=== PATIENT | female | born 1960 | race Caucasian/White ===

== ENCOUNTER 2016-11-29 12:44 | Emergency (ER) | payer MEDICAID ==
--- NOTE | 2016-11-29 14:02 | ED Physician Chart ---
Chief Complaint/HPI - Patient Information Date Seen:: 11/29/16 Time Seen:: 13:50 Chief Complaint:: NEW ONSET HYPERTENSION History of Present Illness:: 56-year-old female was referred to the emergency department from [facility]. She had gone to have evaluation for a UTI and her blood pressure was over 200 systolic.She reports noting that her urine was a pink color for the first time. She denies any dysuria, urinary frequency, fever, chills or back pain. She was started on Bactrim and then referred to the emergency department for further evaluation of hypertension. She has a mild headache which she had not really noticed until directly asked about it. She has no chest pain or respiratory distress. To the best of her knowledge or kidney function remains normal. Allergies:: Allergies Allergy/AdvReac Type Severity Reaction Status Date / Time No Known Allergies Allergy Verified 11/29/16 13:15 Vitals:: Vital Signs - 8 hr 11/29/16 13:16 Temp 98.3 F HR 73 RR 16 BP 197/113 O2 Sat % 99 Review of Systems - Review of Systems General/Constitutional: No fever, No chills, No weight loss, No edema, No loss of appetite Skin: No skin lesions, No rash, No bruising Head: Headache ( The headache is mild and localized to both temporal regions. She notices that headache sometimes comes on when she bends forward.), No light- headedness Eyes: No loss of vision, No pain, No diplopia ENT: No earache, No sore throat, No tinnitus Neck: No neck pain, No stiffness, No mass noted Cardio Vascular: No chest pain, No PND, No edema Pulmonary: No SOB, No cough, No sputum, No wheezing GI: No nausea, No vomiting, No diarrhea, No pain G/U: No dysuria, No frequency, Hematuria Distribution A [employer]: No vaginal discharge Musculoskeletal: Bone or joint pain, No back pain, No muscle pain Endocrine: No polyuria, No polydipsia Psychiatric: No prior psych history, No depression, No anxiety Hematopoietic: No bruising, No lymphadenopathy Allergic/Immuno: No urticaria Neurological: No syncope, No focal symptoms, No weakness, No paresthesia, Headache, No seizure, No dizziness, No confusion, No vertigo Past Medical History - Past Medical History Past Medical History: No significant medical hx Family History: HTN Social History: Non Smoker ( Quit smoking six months ago.), No Alcohol, No Drug Use Surgical History: Psychiatricy History: None Family Medical History - Family Member Mother Living Status: Hx Family Hypertension: Yes Hx Family Diabetes: Yes Other Medical History: high cholesterol father Living Status: Hx Family Cancer: Yes (prostat) Physical Exam - Physical Examination General/Constitutional: Awake, Well-developed, well-nourished, Alert, No distress, GCS 15, Non-toxic appearing, Ambulatory Head: Atraumatic Eyes: Lids, conjuctiva normal, PERRL, EOMI Other Eyes comments:: On ophthalmic examination both optic discs have sharp margins. I was unable to identify any retinal hemorrhages or exudates. No A/V necking was obvious. The AV ratio was approximately 2 to 1. Skin: Nl inspection, No skin lesions, No ecchymosis, No lymphadenopathy ENMT: External ears, nose nl, TM canals nl, Lips, teeth, gums nl, Oropharynx nl , Tonsils nl Neck: Nontender, Full ROM w/o pain, No JVD, No nuchal rigidity, No mass, No stridor Respiratory: Nl effort/Exclusion, Clear to Auscultation, No Wheeze/Rhonchi/Rales Cardio Vascular: RRR, No murmur, gallop, rubs, NL S1 S2 Other Cardio Vascular comments:: GOOD PULSES IN ALL FOUR EXTREMITIES. GI: No tenderness/rebounding/guarding, No organomegaly, No hernia, Normal BS's, Nondistended, No mass/bruits, No McBurney tenderness : No CVA tenderness Extremities: Full ROM, normal strength in all extremities, No edema, Normal digits & nails Other Extremities comments:: Trace pretibial edema in both legs. NO CALF tenderness. Neuro/Psych: Alert/oriented, Normal sensory exam, Normal motor strength, Judgement/insight normal, Mood normal, Normal gait, No focal deficits Misc: Normal back, No paraspinal tenderness Labs/Radiology/EKG Results - Lab Results Results: Laboratory Tests 11/29/16 11/29/16 11/29/16 13:35 14:10 14:10 WBC 7.2 RBC 4.88 Hgb 14.8 Hct 43.4 MCV 89.1 MCH 30.3 MCHC Differential 34.1 RDW 11.9 Plt Count 215 MPV 8.6 Neutrophils % 71.6 Lymphocytes % 23.3 Monocytes % 3.4 Eosinophils % 0.8 Basophils % 0.9 Sodium 139 Potassium 3.4 L Chloride 110 H Carbon Dioxide 27.3 Anion Gap 5.1 L BUN 13 Creatinine 1.0 Est GFR ( Amer) > 60.0 Est GFR (Non-Af Amer) > 60.0 BUN/Creatinine Ratio 13.0 Glucose 114 H Calcium 10.0 Total Bilirubin 0.6 AST 17 ALT 20 Alkaline Phosphatase 71 Troponin I Total Protein 7.1 Albumin 4.0 Globulin 3.1 Albumin/Globulin Ratio 1.3 Urine Source RANDOM Urine Color YELLOW Urine Clarity CLEAR Urine pH 6.0 Ur Specific [place] 1.015 Urine Protein 30 H Urine Glucose (UA) NEGATIVE Urine Ketones NEGATIVE Urine Blood SMALL H Urine Nitrate NEGATIVE Urine Bilirubin NEGATIVE Urine Urobilinogen 0.2 Ur Leukocyte Esterase TRACE H Urine RBC 5-10 H Urine WBC 0-2 Ur Epithelial Cells FEW Urine Bacteria NONE SEEN 11/29/16 14:10 WBC RBC Hgb Hct MCV MCH MCHC Differential RDW Plt Count MPV Neutrophils % Lymphocytes % Monocytes % Eosinophils % Basophils % Sodium Potassium Chloride Carbon Dioxide Anion Gap BUN Creatinine Est GFR ( Amer) Est GFR (Non-Af Amer) BUN/Creatinine Ratio Glucose Calcium Total Bilirubin AST ALT Alkaline Phosphatase Troponin I < 0.01 L Total Protein Albumin Globulin Albumin/Globulin Ratio Urine Source Urine Color Urine Clarity Urine pH Ur Specific [place] Urine Protein Urine Glucose (UA) Urine Ketones Urine Blood Urine Nitrate Urine Bilirubin Urine Urobilinogen Ur Leukocyte Esterase Urine RBC Urine WBC Ur Epithelial Cells Urine Bacteria LAB INTERPRETATION: the CBC was unremarkable. The electrolytes WERE ALL WITHIN NORMAL PARAMETERS EXCEPT FOR A MILD hypokalemia. No evidence for acute UTIs. The BUN and creatinine both within normal parameters. CXR: SINGLE VIEW PA. NO CARDIOMEGALY OR CHF. NO MEDIASTINAL WIDENING. NO AREAS OF PULMONARY INFILTRATES OR CONSOLIDATION. IMPRESSION: NO ACUTE CARDIOPULMONARY FINDINGS. EKG READING: The rhythm is sinus bradycardia at a rate of 57. No ectopy was present. The patient has prominent biphasic P-wave and leave the one suggesting LAE. The TX interval was normal. The QRS duration was normal. [place] was normal. J point elevation in the precordial leads. no ST or T-wave abnormalities.IMPRESSION: SINUS BRADYCARDIA J- point elevation. Assessment - Assessment General Assessment: CASE SUMMARY: this 56-year-old female was referred to the emergency department by [facility] when she was discovered to have high blood pressure with the systolic over 200. Patient has a mild headache but is otherwise asymptomatic. On physical examination the cardiopulmonary examination was unremarkable. Chest x-ray showed no evidence for cardiomegaly or CHF. The EKG was sinus bradycardia which a point elevation. No ischemic findings were noted. The patient was initially treated with 1 mg of Ativan IV. This was followed by 0.1 mg of Klonopin. Her systolic blood pressure came down into the 170 range and I gave her a prescription for lisinopril 10 mg QD for 30 days. She has no primary care M.D. AND SHE WAS REFERRED TO [facility] to obtain a primary care physician. Discharged in stable condition. Indications of return to the emergency department were discussed with the patient prior to her discharge. O ED Septic Shock - . Is Septic Shock (SBP<90, OR Lactate>4 mmol\L) present?: No - <6hrs of presentation: Vital Signs: Vital Signs - 8 hr 11/29/16 13:16 Temp 98.3 F HR 73 RR 16 BP 197/113 O2 Sat % 99 Reassessment (Disposition) - Reassessment Reassessment Condition:: Improved - Diagnosis Diagnosis:: UTI. NEW ONSET HYPERTENSION. TAKE THE BACTRIM PERSCRIBED FOR 3 DAYS. IF NOT SYMPTOM FREE, CONTINUE THE BACTRIM FOR AN ADDITIONAL 4 DAYS. FOLLOW UP WITH THE REFERRAL FOR MANAGEMENT OF BOTH THE HHYPERTENSION AND THE URINARY TRACT INFECTION. AND THE RETURN TO THE ER IF YOUR SYMPTOMS WORSEN. - Aftercare/Follow up Instructions Aftercare/Follow-Up Instructions:: Counseled pt regarding lab results/diagnosis & need follow up, Counseled pt & family regarding lab results/diagnosis & need follow up ED Discharge Plan - Patient Disposition Admit/Discharge/Transfer: PT DISCHARGED HOME Condition at Disposition: Stable Prescriptions: Sulfamethoxazole/TMP [Bactrim DS] 1 tab PO Q12HR #0 tab Lisinopril [Prinivil] 10 mg PO DAILY #30 tablet Instructions: Urinary Tract Infection, [id number], Hypertension, [id number] Additional Instructions: Take medication as prescribed. Follow up with PMD in 1-3 days. Monitor BP.
[2016-11-29 14:20] LABS: % BASOPHILS 0.9 % (0.0-2.0); % EOSINOPHILS 0.8 % (0.0-5.0); % LYMPHOCYTES 23.3 % (20.0-50.0); % MONOCYTES 3.4 % (2.0-10.0); % NEUTROPHILS 71.6 % (40.0-80.0); HEMATOCRIT 43.4 % (35.0-45.0); HEMOGLOBIN 14.8 gm/dL (11.7-15.5); MEAN CELL VOLUME 89.1 fl (81-100); MEAN CORPUSCULAR HEMOGLOBIN 30.3 pg (27.0-31.0); MEAN CORPUSCULAR HGB CONC 34.1 pg (28.0-36.0); MEAN PLATELET VOLUME 8.6 fl; NEUTROPHILE ABSOLUTE 5.1 Th/cmm (1.8-8.0); PLATELET COUNT 215 Th/cmm (150-400); RED BLOOD COUNT 4.88 Mil/cmm (3.80-5.10); RED CELL DISTRIBUTION WIDTH 11.9 % (11.5-20.0); WHITE BLOOD COUNT 7.2 Th/cmm (4.8-10.8)
--- NOTE | 2016-11-29 14:22 | Diagnostic Imaging Report ---
CHEST X-RAY: AP view INDICATION: Hypertension COMPARISON: None FINDINGS: Chronic lung changes are seen with no focal consolidation or pleural effusions. Heart size normal. Spinal scoliosis is noted. IMPRESSION: Chronic lung changes with no focal consolidation identified.
[2016-11-29 14:33] LABS: ALB/GLOB RATIO 1.3 (1.0-1.8); ALKALINE PHOSPHATASE 71 U/L (34-104); ANION GAP 5.1 (7.0-16.0); BILIRUBIN,TOTAL 0.6 mg/dL (0.3-1.0); BUN - UREA NITROGEN 13 mg/dL (7-25); CARBON DIOXIDE 27.3 mEq/L (21.0-31.0); CHLORIDE 110 mEq/L (98-107); GLUCOSE 114 mg/dL (70-105); POTASSIUM SERUM 3.4 mEq/L (3.5-5.1); SGOT 17 U/L (13-39); SGPT/ALT 20 U/L (7-52); SODIUM SERUM 139 mEq/L (136-145)
[2016-11-29 16:04] LABS: URINE BILIRUBIN NEGATIVE (NEGATIVE); URINE COLOR YELLOW; URINE GLUCOSE (UA) NEGATIVE (NEGATIVE); URINE KETONE NEGATIVE (NEGATIVE)
[2016-11-29 16:05] LABS: URINE BLOOD SMALL (NEGATIVE); URINE PROTEIN 30 mg/dL (NEGATIVE); URINE UROBILINOGEN 0.2 E.U./dL (0.2 - 1.0)
[2016-11-29 16:06] LABS: URINE BACTERIA NONE SEEN /hpf (NONE SEEN); URINE EPITHELIAL CELLS FEW /lpf (FEW); URINE WBC 0-2 /hpf (0-5)
== END 2016-11-29 17:00 | disposition home or self-care (01) ==
LOC: ER 12:44
DX: I10 Essential (primary) hypertension (principal); N39.0 Urinary tract infection, site not specified; Z87.891 Personal history of nicotine dependence
CPT/HCPCS: 36415-UA; 71010-TC; 80053-TC; 81001-TC; 84484-TC; 85025-TC; 93005; Z7610